=== PATIENT | female | born 1995 | race Two or more races ===

== ENCOUNTER 2020-07-30 09:07 | Outpatient (CLI) | payer OTHER, SELFPAY ==
--- NOTE | ~2020-07-30 | US_ITS ---
EXAMINATION: US OB /maternal detail DATE: 07/30/2020 10:13 INDICATION: Second trimester anatomic survey TECHNIQUE: Real-time ultrasound of the pelvis was performed. COMPARISON: None. FINDINGS: There is a single living fetus in breech presentation. The placenta is posterior. heart rate is 143 beats per minute (bpm). cardiac activity and movement are noted. The amniotic fluid index is subjectively normal. The following anatomy was identified as normal: 4 chamber heart 3 vessel cord cord insertion kidneys urinary bladder stomach spine diaphragm ventricles cisterna magna cerebellum The following biometric data were obtained: Biparietal diameter (BPD): 4.2 cm; head circumference (HC): 15.8 cm; abdominal circumference (AC): 13 .0 cm; femur length (FL): 2.7 cm. These measurements are concordant. Estimated weight is 246 g +/- 36 g, which correlates with the 79th percentile when 12/31/2020 is used as estimated date of delivery. As single measurements, these parameters are each equal to the following estimated gestational ages w ith ranges of +/- 2 standard deviations: BPD: 18 weeks 6 days ( 17 weeks 1 days - 20 weeks 4 days). HC: 18 weeks 5 days ( 17 weeks 1 days - 20 weeks 1 days). AC: 18 weeks 4 days ( 16 weeks 4 days - 20 weeks 5 days). FL: 18 weeks 3 days ( 16 weeks 4 days - 20 weeks 2 days). estimated gestational age based solely on measurements from this exam is 18 weeks 5 days +/- 1 weeks 2 days. IMPRESSION: 1. Single living fetus in breech presentation. 2. Estimated weight is 246 g +/- 36 g, which correlates with the 79th percentile when 12/31/2020 is used as estimated date of delivery. Reviewed, dictated and finalized at location A. IMPRESSION: 1. Single living fetus in breech presentation. 2. Estimated weight is 246 g +/- 36 g, which correlates with the 79th per centile when 12/31/2020 is used as estimated date of delivery.
== END 2020-07-30 09:08 | disposition home or self-care (01) ==
LOC: ANHIMG 09:16
PROVIDERS: Visit Provider Obstetrics & Gynecology Gynecology
DX: Z36.9 Encounter for antenatal screening, unspecified (principal); Z3A.18 18 weeks gestation of pregnancy
CPT/HCPCS: 76805

== ENCOUNTER 2020-11-12 14:24 | Outpatient (RCR) | payer OTHER, SELFPAY ==
[2020-11-12 15:47] VITALS: BP 116/66
== END 2021-01-03 07:41 | disposition home or self-care (01) ==
LOC: ANHOBOP 14:24
PROVIDERS: Visit Provider Obstetrics & Gynecology Gynecology
DX: O36.8130 Decreased fetal movements, third trimester, not applicable or unspecified (principal); Z3A.33 33 weeks gestation of pregnancy
CPT/HCPCS: 59025

== ENCOUNTER 2020-11-16 11:03 | Outpatient (CLI) | payer OTHER, SELFPAY ==
--- NOTE | ~2020-11-16 | US_ITS ---
EXAMINATION: US venous doppler LE RT DATE: 11/16/2020 11:40 INDICATION: Right lower limb pain and swelling TECHNIQUE: Holt scale images without and with compression and Doppler images of the right lower extre mity veins were obtained. COMPARISON: None FINDINGS: The right common femoral vein, profunda femoral vein, femoral vein, popliteal vein, peronea l trunk, posterior tibial veins, and greater saphenous vein are patent. IMPRESSION: 1. Patent right lower extremity veins. No evidence of deep venous thrombosis. Reviewed, dictated and finalized at location A. OR CONTROLS ENGINEER
== END 2020-11-16 11:04 | disposition home or self-care (01) ==
PROVIDERS: Visit Provider Obstetrics & Gynecology Gynecology
DX: M79.89 Other specified soft tissue disorders (principal)
CPT/HCPCS: 93971

== ENCOUNTER 2020-11-27 21:26 | Observation (INO) | payer OTHER, SELFPAY ==
[2020-11-27 21:37] VITALS: BP 116/70; PULSE 79
[2020-11-27 21:46] VITALS: BP 109/71; PULSE 77
[2020-11-27 22:01] VITALS: BP 110/66; PULSE 77
[2020-11-27 22:16] VITALS: BP 109/65; PULSE 77
[2020-11-27 22:29] VITALS: BMI 28.5
--- NOTE | 2020-11-27 22:29 | LDADM ---
This patient, Krista Jade, was admitted to OB Post 116 on 11/27/20 at 21:26. Plans for labor, pain management and were discussed with patient. Patient/family oriented to hospital policies and general routines including ID bracelet, bed and alarms, visiting hours, pain management, procedures, bathroom and other care routines, personal items, smoking policy, room service/diet and guest tray routines, security routines, and visiting hours. Patient/Family are encouraged to report perceived risks to care and to ask questions if they do not understand what they are told or what they should do. See OBIX for further documentation.
--- NOTE | 2020-12-06 08:21 | PM.OBTRLD ---
OB - Triage/Final Diagnosis Visit Information Reason for evaluation: other (edema of lower extremities)
== END 2020-11-27 22:50 | disposition home or self-care (01) ==
PROVIDERS: Admitting Provider Obstetrics & Gynecology Gynecology; Visit Provider Obstetrics & Gynecology Gynecology
DX: O26.899 Other specified pregnancy related conditions, unspecified trimester (principal); R60.0 Localized edema; Z3A.00 Weeks of gestation of pregnancy not specified
CPT/HCPCS: G0378; G0379

== ENCOUNTER 2020-12-31 13:40 | Inpatient (IN) | payer OTHER, SELFPAY ==
[2020-12-31] VITALS (43 sets, daily range): BP systolic 79–152; BP diastolic 41–87; PULSE 66–93; RESP 18; TEMP 36.3–37.1; O2SAT 98–100; BMI 30.8
--- NOTE | 2020-12-31 13:40 | LDADM ---
This patient, Yahir Jade, was admitted to Labor/Delivery/Recovery 105 on 12/31/20 at 13:40. Plans for labor, pain management and were discussed with patient. Patient/family oriented to hospital policies and general routines including ID bracelet, bed and alarms, visiting hours, pain management, procedures, bathroom and other care routines, personal items, smoking policy, room service/diet and guest tray routines, infant security routines, and visiting hours. Patient/Family are encouraged to report perceived risks to care and to ask questions if they do not understand what they are told or what they should do. See OBIX for further documentation.
[2020-12-31 16:21] LABS: Basophils Absolute Auto 0.1 K/mm3 (0.0-0.1); Basophils Percent Auto 0.4 % (0.2-1.2); Eosinophils Absolute Auto 0.2 K/mm3 (0-0.3); Eosinophils Percent Auto 1.1 % (0-4.4); Hematocrit 38.8 % (37.0-47.0); Hemoglobin 13.1 g/dL (12.0-15.0); Immature Granulocyte Percent A 1.6 % (0-0.5); Lymphocytes Absolute Auto 3.03 K/mm3 (0.9-3.2); Lymphocytes Percent Auto 16.2 % (18.3-44.2); Mean Corpuscular HGB Conc 33.8 g/dl (32-36); Mean Corpuscular Hemoglobin 30.2 pg (26-34); Mean Corpuscular Volume 89.4 fl (80-100); Mean Platelet Volume 11.1 fl (7.4-10.4); Monocytes Absolute Auto 1.1 K/mm3 (0.1-0.6); Monocytes Percent Auto 5.6 % (2.6-8.5); Neutrophils Absolute Auto 14.1 K/mm3 (1.3-6.7); Neutrophils Percent Auto 75.1 % (45.5-73.1); Platelet Count Result 308 k/mm3 (150-375); Red Blood Count 4.34 M/mm3 (4.2-5.4); Red Cell Distribution Width 14.3 % (11.5-14.5); White Blood Count 18.7 K/mm3 (4.5-10.0)
--- NOTE | 2020-12-31 16:48 | WPDOBADMIT ---
Obstetrics - Admit Note Admission Note: AROM clear fluid IOL vertex. record reviewed. No pertinent additions to the history and/or any subsequent changes in the physical findings that are not consistent with the expected course of the were found. Additions to the history and/or subsequent changes in the physical findings follow. None.
[2020-12-31] MEDS: OXYTOCIN 30 UNITS/NS 500 ML 30 UNITS/500 ML BAG IV CONT (18:20)
[2020-12-31] MEDS: LACTATED RINGERS 1,000 ML 125 ML IV CONT ×3 (18:20→21:22)
[2020-12-31] MEDS: fentaNYL CITRATE INJ (*CRX) 100 MCG/2 ML VIAL IV PUSH (19:40)
--- NOTE | 2020-12-31 20:04 | WPDANESEPPF ---
Anes - Initial Pre Proc Eval Procedure: labor epidural Date/Time: 12/31/20 20:04 Surgeon: Adelia Espinoza MD Pre Op Diagnosis: labor pain Pre Op Diagnosis: Induction of Labor Patient Data Age: 25 Gender: F Height: 1.6 m Weight: 79 kg Last Vital Signs Temp 36.3 C L 12/31/20 17:30 Pulse 87 12/31/20 20:01 Resp 18 12/31/20 17:30 BP 112/87 12/31/20 20:01 Allergies Allergy/AdvReac Type Severity Reaction Status Date / Time No Known Allergies Allergy Verified 12/01/20 11:18 Home Medications Medication Instructions Recorded Confirmed Type PNV no.[id number] 2 tablet PO DAILY 12/01/20 12/01/20 History [ Gummies] aspirin 81 mg PO DAILY 12/01/20 12/01/20 History docusate sodium [Colace] 100 mg PO DAILY 12/01/20 12/01/20 History ferrous sulfate [Iron (ferrous 325 mg PO DAILY 12/01/20 12/01/20 History sulfate)] Laboratory Tests 12/31/20 12/31/20 12/31/20 16:13 16:13 16:13 WBC 18.7 K/mm3 H K/mm3 (4.5-10.0) RBC 4.34 M/mm3 M/mm3 (4.2-5.4) Hgb 13.1 g/dL g/dL (12.0-15.0) Hct 38.8 % % (37.0-47.0) MCV 89.4 fl fl (80-100) MCH 30.2 pg pg (26-34) MCHC 33.8 g/dl g/dl (32-36) RDW 14.3 % % (11.5-14.5) Plt Count 308 k/mm3 k/mm3 (150-375) MPV 11.1 fl H fl (7.4-10.4) Immature Gran % (Auto) 1.6 % H % (0-0.5) Neut % (Auto) 75.1 % H % (45.5-73.1) Lymph % (Auto) 16.2 % L % (18.3-44.2) Phillips % (Auto) 5.6 % % (2.6-8.5) Eos % (Auto) 1.1 % % (0-4.4) Baso % (Auto) 0.4 % % (0.2-1.2) Lymph # (Auto) 3.03 K/mm3 K/mm3 (0.9-3.2) Phillips # (Auto) 1.1 K/mm3 H K/mm3 (0.1-0.6) Eos # (Auto) 0.2 K/mm3 K/mm3 (0-0.3) Baso # (Auto) 0.1 K/mm3 K/mm3 (0.0-0.1) Abs Immat Gran (auto) 0.30 K/mm3 H K/mm3 (0.00-0.031) Absolute Neuts (auto) 14.1 K/mm3 H K/mm3 (1.3-6.7) Absolute Nucleated RBC 0.0 K/mm3 K/mm3 (0.0-0.012) Nucleated RBC % 0.0 % % (0.0-0.2) RPR Pending Blood Type A Positive Antibody Screen Negative Patient hx anesthesia problems: none Family hx anesthesia problems: none [facility] Family History Family History (Updated 12/01/20 @ 11:20 by Shandra Donovan RN) Other No pertinent family history Social History Social History Smoking status: Never smoker Substance use: never Gender identity (if verbalized by the patient): Female Spiritual care concerns: No Anes - Eval Final PreProcedure Day of Procedure 12/31/20 20:04 Patient weight: obese ASA classification: II Anesthesia type and monitoring: regional epidural Informed Consent: The patient's anesthetic plan and its attendant risks and benefits were discussed with the patient/family/POA. Questions were solicited and answers provided to the satisfaction of the patient/family/POA.
[2021-01-01] VITALS (33 sets, daily range): BP systolic 84–128; BP diastolic 46–102; PULSE 58–128; RESP 18; TEMP 36.9–38.2; O2SAT 95–99
[2021-01-01] MEDS: AMPICILLIN 2 GM/NS 100 ML 2 GM/100 ML BAG IVPB (03:06)
[2021-01-01] MEDS: miSOPROStol 200 MCG TABLET 1000 MCG RECTAL (05:01)
--- NOTE | 2021-01-01 05:29 | P.PCNOB_ITS ---
OB - Delivery Note Procedure Delivery date: 01/01/21 Procedure: events: Labor Induction Intrapartal events: None Induction method: AROM and per pitocin protocol Delivery monitor: external FHT and external uterine Route of delivery: Laceration Description: Perineal - 2nd Degree Specimen: No Anesthesia type: Epidural Disposition: floor [place] Baby Date of : 01/01/21 Time of : 05:01 Weeks of gestation at delivery: 39 Infant gender: Male Weight (pounds): 6 Weight (ounces): 8 presentation: vertex position: Left Occiput Anterior Placenta delivery description: Spontaneous cord vessel description: 3 Vessels and Clamped/Cut score one minute: 8 score five minutes: 9
[2021-01-01] MEDS: OXYTOCIN 30 UNITS/NS 500 ML 30 UNITS/500 ML BAG 125 UNITS IV CONT (05:34)
[2021-01-01] MEDS: BENZOCAINE 20% AER SPR (*SP) 56 GM CAN 1 SPRAY TOPICAL (08:02)
[2021-01-01] MEDS: WITCH HAZEL 40 PADS 1 PAD TOPICAL (08:02)
[2021-01-01] MEDS: IBUPROFEN 600 MG TABLET PO ×2 (08:02→20:13)
--- NOTE | 2021-01-01 10:50 | PC.NURSE ---
Patient transferred to post room #276 via wheelchair. Support person present. Oriented to unit, room, information board, rooming in, admission packet and security measures. Patient verbalizes understanding.
[2021-01-01] MEDS: MULTIVIT/MIN/PREN/FOL AC/IRON TABLET 1 TAB PO (11:16)
[2021-01-01] MEDS: DOCUSATE SODIUM 100 MG CAPSULE PO (19:04)
[2021-01-02 04:52] VITALS: TEMP 36.6
[2021-01-02 05:05] LABS: Hematocrit 30.4 % (37.0-47.0); Hemoglobin 10.4 g/dL (12.0-15.0)
[2021-01-02 07:00] VITALS: BP 122/80; PULSE 81; RESP 16; TEMP 36.7; O2SAT 96
[2021-01-02] MEDS: IBUPROFEN 600 MG TABLET PO ×2 (09:05→19:21)
[2021-01-02] MEDS: DOCUSATE SODIUM 100 MG CAPSULE PO (09:05)
[2021-01-02] MEDS: MULTIVIT/MIN/PREN/FOL AC/IRON TABLET 1 TAB PO (09:05)
--- NOTE | 2021-01-02 18:22 | PC.NURSE ---
Patient viewed the discharge video Mother & Baby Care, The First Two Weeks . Patient was given the opportunity and encouraged to ask questions. Patient verbalized understanding of information shared and has been given the mother/baby guide for home reference.
[2021-01-02 19:05] VITALS: BP 109/69; PULSE 89; RESP 16; TEMP 36.9; O2SAT 100
--- NOTE | 2021-01-03 01:02 | PM.OBPNVD ---
OB - PN: Subj Subjective Date/time seen: 01/03/21 01:02 doing well no complaints OB - PN: Obj Data Labs CBC & Chem 7: 01/02/21 04:43 Labs: Laboratory Results - last 24 hr 01/02/21 04:43 Hgb 10.4 L Hct 30.4 L OB - PN A/P Assessment and Plan (1) (normal spontaneous vaginal delivery): Code(s): O80 - Encounter for full-term uncomplicated delivery Status: Acute Assessment and Plan: continue with pp care. Time Spent With Patient Time: Total time spent is greater than 50% in coordination of care (as documented) at patient's floor/unit and/or counseling patient: Exam GI: Other: ff below umbilicus
[2021-01-03 07:53] VITALS: BP 124/83; PULSE 80; RESP 16; TEMP 36.8; O2SAT 95
[2021-01-03] MEDS: MULTIVIT/MIN/PREN/FOL AC/IRON TABLET 1 TAB PO (07:54)
[2021-01-03] MEDS: DOCUSATE SODIUM 100 MG CAPSULE PO (07:54)
--- NOTE | 2021-01-03 08:39 | PC.NURSE ---
Consulted with patient, mom pumping and feeding at this time. Reviewed instructions given on breast pump care and usage, pumping schedule, nipple care, and collection and storage of breast milk. Encouraged [id number], breast massage and manual expression to stimulate supply. Patient verbalizes and demonstrates understanding of instructions. She denies any nipple discomfort, is bottle feeding as required and waking to feed if needed. Reviewed transition to breast milk, signs of adequate intake, and engorgement/relief. Instructed to call ICP if intake/output less than required. Reviewed community resources on the [facility] website and in the Mom/Baby guide. Information on outpatient services provided. Mother has no further questions at this time.
--- NOTE | 2021-01-03 08:45 | PC.NURSE ---
Mom encouraged to call out next pumping session to have pumping assessed for correct flange size and placement.
--- NOTE | 2021-01-03 08:56 | P.PNOB_ITS ---
OB - PN: Subj Subjective Date/time seen: 01/03/21 08:56 Patient comments: no complaints and pain well controlled baby status: doing well OB - PN: Obj Data Labs CBC & Chem 7: 01/02/21 04:43 OB - PN A/P Plan day: 2 Plan: routine care, discharge home and follow up 6 weeks Comments: declines control Time Spent With Patient Time: Total time spent is greater than 50% in coordination of care (as docum ented) at patient's floor/unit and/or counseling patient: Exam : Bimanual exam- vagina & uterus: other (Uterus firm, nt @U)
[2021-01-03] MEDS: IBUPROFEN 600 MG TABLET PO (09:05)
[2021-01-03 09:11] LABS: Rapid Plasma Reagin Non-Reactive (NonReactive)
--- NOTE | 2021-01-03 10:44 | PC.NURSE ---
Assessed patient for correct flange size, placement and draw while pumping. Patient verbalizes and demonstrates understanding of instructions.
[2021-01-03 11:20] VITALS: BP 137/81; PULSE 70; RESP 20; TEMP 36.2; O2SAT 100
[2021-01-05 09:41] VITALS: BP 114/77; PULSE 100; RESP 20; TEMP 36.8; O2SAT 100
--- NOTE | 2021-01-05 15:08 | PC.NURSE ---
1015 Breast feeding note; LC asked to come and assist this mom and baby seen in f/u today, to try to get to latch to breast feed. Mother is attempting breast feeding, pumping and bottle feeding. Baby had only latched about 3 times in last 24 hours. Baby awake, very hungry and fussy; mother states her milk is in and she is leaking colostrum. Nurse assisted mother in cross cradle then football position. baby made attempts to latch, but was unable to latch to breast to feed; mothers areola area somewhat firm and baby just could not get a latch and maintain. Mother states she had a nipple shield, but threw it away . Mother also states she would really just like to get infant to breast. Attempts stopped, and baby eagerly took pumped breast milk and formula at this feeding. Mother instructed to continue regular pumping, giving infant pumped breast milk first, then completing the feeding with formula as baby wants. Suggestion made to attempt to get her to breast one time a day, when mother feels good, and when baby is awake and eager, but not crying hard. Encouraged to stay determined, that baby may latch as she grows and matures. Mother has the LC contact information at home in her Mom Baby Guide, as well as breast feeding education included in that book. She was encouraged to call for any further questions or concerns. Mother voiced understanding of all information shared. Initialized on 01/05/21 14:59 - END OF NOTE
--- NOTE | 2021-01-17 11:06 | PM.OBDSVD ---
DS: Admitting Diagnosis Admitting Diagnosis Admitting Diagnosis: induction of labor DS: Discharge Diagnosis Discharge Diagnosis (1) (normal spontaneous vaginal delivery): Code(s): O80 - Encounter for full-term uncomplicated delivery Status: Acute OB - DS: Summary OB Procedures : Ultrasound OB Procedures Intrapartum: Spontaneous Vag Delivery OB Procedures: : None Time Spent with Patient Time attestation: Total time spent providing and/or coordinating discharge services: Discharge Plan Discharge Attending physician on discharge: Nima Rojas Consulting providers: Сергей Mullins Discharging Clinician: Adelia Espinoza Anticipated Discharge Date/Time: 01/03/21 08:57 Patient Disposition: Home, Self-Care Activity: may shower and pelvic rest Diet: regular Discharge Instructions: Education: Mom and Baby Guide Given to: Mother Follow-Up: Call your delivering provider's office for an appointment to be seen in: 6 Weeks Mom and baby should come to the [facility] for the follow-up appointment. Appointment Date/Time: Sunday01/05/2021 at 10:00 am Call [phone] if you are unable to keep your appointment time. BREAST CARE: * Wear a snug supportive bra. * For engorgement discomfort: Breast Feeding: * Apply warm moist washcloths * Express milk as needed to relieve engorgement * Wear loose clothing Bottle Feeding: * May apply ice packs * For sore nipples: * Identify correct latch-on * Apply warm moist washcloths before and after nursing * Air dry nipples after nursing * May apply Lansinoh cream to nipples PERINEAL CARE: * Until bleeding stops, use your alyce bottle after urinating * Change your pad frequently throughout the day * You may take sitz baths several times a day (fill your bathtub with warm water and soak for 20 minutes.) Do NOT bathe in the water * No tub baths until seen by your physician - You may shower ACTIVITY: * Rest as much as possible. * Do not exercise or lift anything heavier than your baby (such as laundry or other children.) * Avoid stairs or driving as much as possible. * Do not put anything into the vagina. No douching, tampons, or sexual activity until seen by physician. NOTIFY PHYSICIAN IF YOU HAVE ANY QUESTIONS OR IF ANY OF THE FOLLOWING SYMPTOMS OCCUR: * If your episiotomy or incision becomes red, swollen, or more painful than what you have experienced in the hospital. * If your vaginal bleeding becomes foul smelling. * If your vaginal bleeding becomes more heavy than a period or if your bleeding changes from pink to bright red. However, you may pass an occasional walnut-sized clot once or twice for the first week . * If you experience a sharp, shooting pain in you calves. * If you discover a hard, reddened area on your breast or if you experience flu-like symptoms. DIET: * Eat regular, well-balanced meals. * Drink plenty of fluids daily. If , drink to thirst. Patient Instructions: Antibiotic Form Patient Language: Swiss Follow-up/Referrals: Adelia Espinoza MD [Physician] - 6 Weeks Discharge Medications: Continued Gummies 400 mcg-35 mg- 25 mg-5 mg Tablet,Chewable 2 tablet PO DAILY RF: 0 Discontinued ferrous sulfate [Iron (ferrous sulfate)] 325 mg (65 mg iron) Tablet 325 mg PO DAILY RF: 0 docusate sodium [Colace] 100 mg Capsule 100 mg PO DAILY RF: 0 aspirin 81 mg Tablet 81 mg PO DAILY RF: 0 Date of admission: 12/31/20 13:40 Primary Care Provider: PHYSICIAN,VIBRATOR OPERATOR Admitting Provider: Nima Rojas Attending physician on admission: Adelia Espinoza Condition: Stable
== END 2021-01-03 17:45 | disposition home or self-care (01) | DRG 560 ==
LOC: ANHLDR 15:37 → ANHOB2 01-01 08:39
PROVIDERS: Admitting Provider Obstetrics & Gynecology; Visit Provider Obstetrics & Gynecology Gynecology
DX: O99.214 Obesity complicating childbirth (principal); Z37.0 Single live birth; Z3A.40 40 weeks gestation of pregnancy; O70.1 Second degree perineal laceration during delivery; E66.9 Obesity, unspecified; O75.2 Pyrexia during labor, not elsewhere classified
CPT/HCPCS: 36415; 85014; 85018; 85025; 86592; 86850; 86900; 86901; A9270; J0131; J0290; J2210; J2590; J2795; J3010; J7120

== ENCOUNTER 2021-12-09 15:28 | Emergency (ER) | payer OTHER, SELFPAY ==
[2021-12-09 15:36] VITALS: BP 116/68; PULSE 94; RESP 16; TEMP 36.3; O2SAT 100
--- NOTE | 2021-12-09 15:56 | ED.URI ---
HPI - URI/Sore Throat General Chief Complaint: Upper Respiratory Infection Stated Complaint: Sore Throat Source: patient and RN notes reviewed Mode of arrival: ambulatory Limitations: no limitations History of Present Illness HPI Narrative: 26-year-old female presents concern for 3 to 4-day history of sore throat, body aches, cough. Reports she took 2 doses of azithromycin that she had leftover without relief. She denies shortness of breath, fever. MD elicited complaint: cough and sore throat Related Data Home Medications Medication Instructions Recorded Confirmed Gummies 2 tablet PO DAILY 12/01/20 12/01/20 Allergies Allergy/AdvReac Type Severity Reaction Status Date / Time No Known Allergies Allergy Verified 12/01/20 11:18 Review of Systems Review of Systems: CONSTITUTIONAL: Denies malaise, chills, sweats, or fever. EYES: Denies visual changes, redness, or discharge. ENT: Reports rhinorrhea, congestion, sore throat. Denies sinus pain, otalgia CARDIOVASCULAR: Denies chest pain, palpitations, or edema. RESPIRATORY: Reports cough. Denies dyspnea. GASTROINTESTINAL: Denies abdominal pain, nausea, vomiting, diarrhea SKIN: Denies rash or itching. MUSCULOSKELETAL: Denies myalgia. NEUROLOGIC: Denies headache. All systems reviewed & are unremarkable except as noted in HPI and below PMFSH Past Medical History Medical History (Updated 12/09/21 @ 16:40 by Brianne Torres NP) (normal spontaneous vaginal delivery) Family History Family History (Updated 12/01/20 @ 11:20 by Shandra Donovan RN) Other No pertinent family history Social History Social History Smoking status: Never smoker Substance use: never Gender identity (if verbalized by the patient): Female Spiritual care concerns: No Comments At time of signature, agree with nursing past medical, surgical, social and family history. There is no relevant family history pertinent to the presenting complaint Exam Narrative: GENERAL: Well-appearing, well-nourished, and in no acute distress. HEAD: Normocephalic EYES: PERRLA, conjunctivae clear ENT: Nares clear clear discharge. Mucous membranes moist. TM pearly short with dull light reflex bilaterally; no tragal tenderness. Oropharynx not erythematous without lesions. Tonsils not enlarged and without exudate, no drooling, no hoarseness, no trismus, uvula midline. NECK: Supple. No lymphadenopathy CHEST: Clear to auscultation, breath sounds equal. No wheezing, rhonchi, rales, or stridor. No respiratory distress, speaks in full sentences. HEART: Regular rate and rhythm. No murmur heard. SKIN: Warm, dry, no rash. NEURO: Alert and oriented x3. PSYCH: Normal mood and affect Course Course Emergency Course: Patient is aware of diagnosis, understands and agrees to treatment plan. Anticipatory guidance given. Patient agrees to follow-up as directed and is aware of reasons to seek care at the emergency department. Portions of this record may have been created with voice recognition software Level of Care: Express Care Visit Vital Signs Vital signs: Vital Signs Temperature 97.4 F L 12/09/21 15:36 Pulse Rate 94 12/09/21 15:36 Respiratory Rate 16 12/09/21 15:36 Blood Pressure 116/68 12/09/21 15:36 Pulse Oximetry 100 12/09/21 15:36 Temperature 97.4 F L 12/09/21 15:36 Pulse Rate 94 12/09/21 15:36 Respiratory Rate 16 12/09/21 15:36 Blood Pressure 116/68 12/09/21 15:36 Pulse Oximetry 100 12/09/21 15:36 Reviewed. MDM - URI/Sore Throat MDM Narrative Medical decision making narrative: Differential diagnosis considered: Villalobos virus, strep pharyngitis, allergic rhinitis, upper respiratory tract infection, sinusitis, rhinosinusitis, nasopharyngitis. viral pharyngitis, otitis media, otitis externa, pneumonia, bronchitis, viral cough syndrome, viral syndrome, and influenza. Exam findings show no acute concerns or changes; patient is non-toxic appearing and is in no distr
--- NOTE | 2021-12-09 16:42 | PC.NURSE ---
alaina at main lab called and will d/c pcr covid order. was intended to be rapid covid test.
== END 2021-12-09 16:45 | disposition home or self-care (01) ==
PROVIDERS: Emergency Provider Nurse Practitioner
DX: U07.1 COVID-19 (principal)
CPT/HCPCS: 87426; 99213; C9803; G0463; U0003; U0005

== ENCOUNTER 2023-10-28 11:17 | Emergency (ER) | payer OTHER, SELFPAY ==
[2023-10-28 11:45] VITALS: BP 104/57; PULSE 90; RESP 16; TEMP 36.6; O2SAT 100
--- NOTE | 2023-10-28 12:36 | ED.URI ---
HPI - URI/Sore Throat General Chief Complaint: Upper Respiratory Infection Stated Complaint: headache,sore throat,cough,dizzy,weakness Time Seen by Provider: 10/28/23 12:36 Source: patient Mode of arrival: ambulatory Limitations: no limitations History of Present Illness HPI Narrative: 27-year-old female presents with complaint of nasal congestion, cough for the past 4 days. Afebrile. No chest pain or shortness of breath. Patient reports symptoms are improving. Reports exposure to RSV from family on . Reports that daughter has similar symptoms, her RSV test was positive. All systems reviewed and negative except as noted above. Related Data Home Medications Medication Instructions Recorded Confirmed No Home Medications 10/28/23 10/28/23 Allergies Allergy/AdvReac Type Severity Reaction Status Date / Time No Known Allergies Allergy Verified 10/28/23 11:50 Review of Systems Review of Systems: CONSTITUTIONAL: Denies fever, chills, or sweats. EYES: Denies visual changes, redness, or discharge. ENT: Reports rhinorrhea, congestion. Denies sore throat, or otalgia. CARDIOVASCULAR: Denies chest pain, palpitations, or edema. RESPIRATORY: reports cough. Denies dyspnea. GASTROINTESTINAL: Denies abdominal pain, nausea, vomiting, or diarrhea. GENITOURINARY: Denies dysuria or hematuria. SKIN: Denies rash or itching. MUSCULOSKELETAL: Denies back pain, joint pain, or myalgia. NEUROLOGIC: Denies headache, numbness, or weakness. PSYCHIATRIC: Denies anxiety or depression. All other systems reviewed are negative, except as documented in HPI. [facility] Past Medical History Medical History (Updated 10/28/23 @ 12:55 by Linda Fischer NP) (normal spontaneous vaginal delivery) Family History Family History (Updated 12/01/20 @ 11:20 by Shandra Donovan RN) Other No pertinent family history Social History Social History Smoking status: Never smoker Substance use: never Gender identity (if verbalized by the patient): Female Spiritual care concerns: No Comments At time of signature, agree with nursing past medical, surgical, social and family history. There is no relevant family history pertinent to the presenting complaint. Exam Narrative: GENERAL: This is a well-nourished, well-developed patient, in no apparent distress. HEAD: normocephalic, atraumatic. EYES: PERRL. Sclera clear/white. Vision is grossly intact. EARS: External ears normal, auditory canals clear and without drainage, TMs normal without perforation. Hearing grossly intact. NOSE: External nose normal with clear nasal drainage, nares without redness, THROAT: Mucous membranes moist, posterior pharynx clear. NECK: Neck supple, non-tender without lymphadenopathy, masses or thyromegaly. CARDIOVASCULAR: Regular rate and rhythm without murmurs, gallops, or rubs. RESPIRATORY: Clear to auscultation. Breath sounds equal bilaterally. No wheezes, rales, or rhonchi. SKIN: warm, Dry, intact with no suspicious lesions or rash, good texture and turgor. NEURO: awake, alert, and oriented to person, place and time. There were no obvious focal neurologic abnormalities. EXTREMITIES: No joint tenderness, effusion, or edema noted. Course Course Level of Care: Express Care Visit Vital Signs Vital signs: Vital Signs Temperature 36.6 C 10/28/23 11:45 Pulse Rate 90 10/28/23 11:45 Respiratory Rate 16 10/28/23 11:45 Blood Pressure 104/57 L 10/28/23 11:45 Pulse Oximetry 100 10/28/23 11:45 Oxygen Delivery Room Air 10/28/23 11:45 Temperature 36.6 C 10/28/23 11:45 Pulse Rate 90 10/28/23 11:45 Respiratory Rate 16 10/28/23 11:45 Blood Pressure 104/57 L 10/28/23 11:45 Pulse Oximetry 100 10/28/23 11:45 Oxygen Delivery Room Air 10/28/23 11:45 reviewed MDM - URI/Sore Throat MDM Narrative Medical decision making narrative: patient well-appearing. Symptoms improving. lungs damien
== END 2023-10-28 13:25 | disposition home or self-care (01) ==
PROVIDERS: Emergency Provider Nurse Practitioner Family
DX: R05.9 Cough, unspecified (principal); B97.4 Respiratory syncytial virus as the cause of diseases classified elsewhere
CPT/HCPCS: 99211; G0463

== ENCOUNTER 2023-12-20 10:58 | Outpatient (CLI) | payer OTHER, SELFPAY ==
--- NOTE | ~2023-12-20 | US_ITS ---
EXAMINATION: US OB <=14 wk fetus w TV DATE: 12/20/2023 12:14 INDICATION: Vaginal spotting. TECHNIQUE: Real-time transabdominal and transvaginal obstetric ultrasound. FINDINGS: No prior studies for comparison. The uterus measures 7 x 4.5 x 4.7 cm. There is an intrauterine gestational sac with a yolk sac. No fe dave pole identified. There is a 2.3 cm corpus luteal cyst of the right ovary. Left ovary is not visua lized. No free fluid in the pelvis. IMPRESSION: 1: Intrauterine gestational sac with yolk sac. No pole identified. Considerations include very early intrauterine , ectopic and failed . Recommend follow-up with serial quantitative beta-hCG levels and ultrasound as clinically indicated. Reviewed, dictated and finalized at location L. TION MANAGER IMPRESSION: 1: Intrauterine gestational sac with yolk sac. No pole identified. Consid erations include very early intrauterine , ectopic and faile d . Recommend follow-up with serial quantitative beta-hCG levels and u ltrasound as clinically indicated.
== END 2023-12-20 10:59 | disposition home or self-care (01) ==
LOC: ANHIMG 11:00
PROVIDERS: Visit Provider Obstetrics & Gynecology Gynecology
DX: O26.851 Spotting complicating pregnancy, first trimester (principal); Z3A.00 Weeks of gestation of pregnancy not specified
CPT/HCPCS: 76801; 76817

== ENCOUNTER 2024-01-04 10:53 | Outpatient (CLI) | payer OTHER, SELFPAY ==
--- NOTE | ~2024-01-04 | US_ITS ---
EXAMINATION: US OB <= 14 weeks fetus DATE: 01/04/2024 11:45 INDICATION: First trimester viability assessment TECHNIQUE: Real-time pelvic transabdominal ultrasound was performed. COMPARISON: 12/20/2023 FINDINGS: The uterus measures 11.5 x 3.8 x 5.4 cm. There is an intrauterine gestational sac. A yolk s ac is identified. heart motion is identified measuring 157 beats per minute (bpm) by M-mode Dop pler. The crown rump length measures 1.5 cm, which correlates with an estimated gestational age of 7 weeks and 6 day(s) (+/-) 5 day(s). The ovaries are unremarkable in appearance. There is no free fluid in the pelvis. IMPRESSION: 1. Live intrauterine with an estimated gestational age of 7 weeks and 6 day(s) (+/-) 5 day( s) and an estimated delivery date of 08/16/2024. Reviewed, dictated and finalized at location B. IVING ASSOCIATE STORE IMPRESSION: 1. Live intrauterine with an estimated gestational age of 7 weeks and 6 day(s) (+/-) 5 day(s) and an estimated delivery date of 08/16/2024.
[2024-01-04 12:18] LABS: Basophils Percent Auto 0.3 % (0.2-1.2); Eosinophils Absolute Auto 0.1 K/mm3 (0-0.3); Eosinophils Percent Auto 0.8 % (0-4.4); Hematocrit 37.3 % (37.0-47.0); Immature Granulocyte Absolute 0.04 K/mm3 (0.00-0.031); Immature Granulocyte Percent A 0.3 % (0-0.5); Lymphocytes Percent Auto 25.3 % (18.3-44.2); Mean Corpuscular HGB Conc 32.2 g/dl (32-36); Mean Corpuscular Hemoglobin 27.9 pg (26-34); Mean Corpuscular Volume 86.7 fl (80-100); Mean Platelet Volume 10.2 fl (7.4-10.4); Monocytes Absolute Auto 0.7 K/mm3 (0.1-0.6); Monocytes Percent Auto 5.4 % (2.6-8.5); Neutrophils Absolute Auto 8.3 K/mm3 (1.3-6.7); Neutrophils Percent Auto 67.9 % (45.5-73.1); Platelet Count Result 297 k/mm3 (150-375); Red Cell Distribution Width 13.7 % (11.5-14.5); White Blood Count 12.3 K/mm3 (4.5-10.0)
[2024-01-04 13:04] LABS: Vitamin D 25 Hydroxy 25.7 ng/mL
[2024-01-04 13:11] LABS: HIV 1/2 Ab P24 Ag Result Negative (Negative)
[2024-01-04 13:30] LABS: Hepatitis B Surface Antigen Negative (Negative)
[2024-01-04 13:38] LABS: Ferritin 7.54 ng/mL (6.24-137)
[2024-01-04 13:41] LABS: Hemoglobin A1C 5.4 % (<5.7); Hepatitis C Virus Antibody Negative (Negative)
[2024-01-05 08:15] LABS: Rapid Plasma Reagin Non-Reactive (NonReactive)
== END 2024-01-04 10:54 | disposition home or self-care (01) ==
LOC: ANHIMG 10:53
PROVIDERS: Visit Provider Obstetrics & Gynecology Gynecology
DX: Z36.9 Encounter for antenatal screening, unspecified (principal); Z3A.01 Less than 8 weeks gestation of pregnancy
CPT/HCPCS: 36415; 76801; 82306; 82728; 83036; 85025; 86592; 86703; 86762; 86803; 86850; 86900; 86901; 87340; G0432

== ENCOUNTER 2024-09-04 13:03 | Emergency (ER) | payer OTHER, SELFPAY ==
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
[2024-09-04 13:19] VITALS: BP 100/58; PULSE 76; RESP 15; TEMP 36.5; O2SAT 100
[2024-09-04 13:25] VITALS: BP 100/58; PULSE 76; RESP 15; TEMP 36.5; O2SAT 100
== END 2024-09-04 13:58 | disposition home or self-care (01) ==
PROVIDERS: Emergency Provider Nurse Practitioner
DX: S39.012A Strain of muscle, fascia and tendon of lower back, initial encounter (principal); V49.40XA Driver injured in collision with unspecified motor vehicles in traffic accident, initial encounter
CPT/HCPCS: 72100; 99213; G0463

== ENCOUNTER 2024-10-15 15:08 | Outpatient (CLI) | payer OTHER, SELFPAY ==
--- NOTE | ~2024-10-15 | US_ITS ---
EXAMINATION: US OB <=14 wk fetus w TV DATE: 10/15/2024 16:12 INDICATION: . History of spontaneous . TECHNIQUE: Real-time transabdominal and transvaginal pelvic ultrasound was performed. COMPARISON: Ultrasound 01/04/2024 FINDINGS: TRANSABDOMINAL ULTRASOUND: The uterus measures 9.7 x 5.4 x 5.0 cm. TRANSVAGINAL ULTRASOUND: There is an intrauterine gestational sac. A yolk sac is identified. The fet al crown rump length measures 4 mm, which correlates with an estimated gestational age of 6 weeks and 0 day(s) (+/-) 4 day(s). heart motion is identified measuring 117 beats per minute (bpm) by M- mode Doppler. There is a small subchorionic hematoma. The right ovary measures 2.3 x 1.8 x 1.5 cm. Th e left ovary measures 2.6 x 1.4 x 2.0 cm. There is no free fluid in the pelvis. IMPRESSION: 1. Single living intrauterine gestation with estimated date of delivery of 06/10/2025. 2. Small subchorionic hematoma. Reviewed, dictated and finalized at location A. UTER HARDWARE DESIGNER IMPRESSION: 1. Single living intrauterine gestation with estimated date of delivery of 05/26. 2. Small subchorionic hematoma.
== END 2024-10-15 15:09 | disposition home or self-care (01) ==
PROVIDERS: PCP Obstetrics & Gynecology Gynecology; Visit Provider Obstetrics & Gynecology Gynecology
DX: O09.291 Supervision of pregnancy with other poor reproductive or obstetric history, first trimester (principal); O46.90 Antepartum hemorrhage, unspecified, unspecified trimester; Z3A.00 Weeks of gestation of pregnancy not specified
CPT/HCPCS: 76801; 76817

== ENCOUNTER 2024-11-07 13:16 | Outpatient (CLI) | payer OTHER, SELFPAY ==
--- NOTE | ~2024-11-07 | US_ITS ---
EXAMINATION: US OB <=14 wk fetus w TV DATE: 11/07/2024 14:27 INDICATION: Subchronic hematoma. TECHNIQUE: Real-time transabdominal and transvaginal pelvic ultrasound was performed. COMPARISON: Ultrasound 10/15/2024 FINDINGS: TRANSABDOMINAL ULTRASOUND: The uterus measures 10.7 x 6.1 x 5.3 cm. TRANSVAGINAL ULTRASOUND: There is an intrauterine gestational sac. A yolk sac is identified. The fet al crown rump length measures 2.7 cm, which correlates with an estimated gestational age of 9 weeks a nd 3 day(s). heart motion is identified measuring 158 beats per minute (bpm) by M-mode Doppler. The right ovary measures 2.4 x 1.3 x 2.0 cm. The left ovary measures 2.5 x 1.9 x 1.5 cm. There is no free fluid in the pelvis. IMPRESSION: 1. Single living intrauterine gestation with estimated date of delivery of 06/10/2025 based on the ul trasound from 10/15/2024. 2. No subchronic hematoma. Reviewed, dictated and finalized at location A. IR CAMERAMAN IMPRESSION: 1. Single living intrauterine gestation with estimated date of delivery of 05/26 based on the ultrasound from 10/15/2024. 2. No subchronic hematoma.
== END 2024-11-07 13:17 | disposition home or self-care (01) ==
PROVIDERS: PCP Obstetrics & Gynecology Gynecology; Visit Provider Obstetrics & Gynecology Gynecology
DX: O36.8910 Maternal care for other specified fetal problems, first trimester, not applicable or unspecified (principal); Z3A.00 Weeks of gestation of pregnancy not specified
CPT/HCPCS: 76801; 76817

== ENCOUNTER 2025-01-22 15:20 | Outpatient (CLI) | payer OTHER, SELFPAY | END 2025-01-22 15:21 | disposition home or self-care (01) | PROVIDERS: PCP Obstetrics & Gynecology Gynecology; Visit Provider Nurse Practitioner Women's Health | DX: Z36.9 Encounter for antenatal screening, unspecified (principal) | CPT/HCPCS: 76805 ==

== ENCOUNTER 2025-02-03 14:53 | Outpatient (CLI) | payer OTHER, SELFPAY ==
--- NOTE | ~2025-02-03 | US_ITS ---
EXAM EXAMINATION: US OB follow up DATE: 02/03/2025 16:22 CDT INDICATION: Anatomy scan follow-up COMPARISON: 12/26/2024 and 11/25/2024 TECHNIQUE: Real-time transabdominal obstetric ultrasound. FINDINGS: There is a single intrauterine gestation in vertex presentation. The placenta is posterior The cervix measures 3.7 cm in length on the submitted images. cardiac activity and movement is noted with a heart rate of 151 beats per minute. The following biometric data were obtained: Biparietal diameter (BPD): 5.6 cm; head circumference (HC): 19.7 cm; abdominal circumference (AC): 17.2 cm; femur length (FL): 3.8 cm. These measurements are concordant. Estimated weight is 477 g +/- 71.5 g, which correlates with the 58th percentile when 06/07/2025 is used as estimated date of delivery. As single measurements, these parameters are each equal to the following estimated gestational ages: BPD: 23 weeks 0 days. HC: 21 weeks 6 days. AC: 22 weeks 0 days. FL: 22 weeks 0 days. estimated gestational age based solely on measurements from this exam is 22 weeks 2 days +/- 1 week 4 days. NOMI: The deepest vertical pocket measures 5.2 cm. Lateral ventricle measures 5.8 mm Cerebellum measures 2.2 cm, and is sonographically unremarkable. Cisterna magna measures 4.9 mm (normal measurement is 2 to 10 mm). The nuchal fold measures 2.7 mm (normal measurement is less than 6 mm). IMPRESSION: Single intrauterine gestation in vertex presentation with cardiac activity identified. Follow-up anatomy scan demonstrates unremarkable findings and measurements within the posterior crani al fossa. Reviewed, dictated and finalized at location A. IMPRESSION: Single intrauterine gestation in vertex presentation with cardiac activit y identified. Follow-up anatomy scan demonstrates unremarkable findings and measurements with in the posterior cranial fossa.
== END 2025-02-03 14:54 | disposition home or self-care (01) ==
LOC: ANHIMG 14:54
PROVIDERS: PCP Obstetrics & Gynecology Gynecology; Visit Provider Obstetrics & Gynecology Gynecology
DX: Z36.9 Encounter for antenatal screening, unspecified (principal); Z3A.22 22 weeks gestation of pregnancy
CPT/HCPCS: 76816

== ENCOUNTER 2025-05-31 17:19 | Inpatient (IN) | payer OTHER, SELFPAY ==
[2025-05-31] VITALS (53 sets, daily range): BP systolic 111–153; BP diastolic 64–102; PULSE 66–151; TEMP 36.8–37.1; O2SAT 97–100; BMI 31.0
--- NOTE | 2025-05-31 02:00 | S_PTH ---
PATIENT: Yahir Jade LOC: [facility] U#:[id number] AGE/SX: 29/F ROOM: 288 RE05/31/[address]: Adelia Espinoza MD : 1995 BED: 00 DIS: 06/03/2025 SPEC #: [id number] RECD: 06/01/25 10:18 STATUS: ARYAN REFarhan #: [id number] EMA: 05/31/25 02:[address]: Adelia Espinoza DEPT: [facility] RECD BY: Marcie Hallman ENTERED: 06/01/25 10:18 SP TYPE: Surgical OTHR DR: UNKNOWN,DOCTOR Tissues: A - Placenta Procedures: Hematoxylin and Eosin Stain Gross and Microscopic Level 5
--- NOTE | 2025-05-31 18:19 | LDADM ---
This patient, Yahir Jade, was admitted to Labor/Delivery/Recovery 106 on 05/31/25 at 17:19. Plans for labor, pain management and were discussed with patient. Patient/family oriented to hospital policies and general routines including ID bracelet, bed and alarms, visiting hours, pain management, procedures, bathroom and other care routines, personal items, smoking policy, room service/diet and guest tray routines, infant security routines, and visiting hours. Patient/Family are encouraged to report perceived risks to care and to ask questions if they do not understand what they are told or what they should do. See OBIX for further documentation.
[2025-05-31 19:03] LABS: Hematocrit 40.5 % (37.0-47.0); Hemoglobin 13.5 g/dL (12.0-15.0); Immature Granulocyte Percent A 1.5 % (0-0.5); Lymphocytes Absolute Auto 2.55 K/mm3 (0.9-3.2); Mean Corpuscular HGB Conc 33.3 g/dl (32-36); Mean Corpuscular Hemoglobin 30.1 pg (26-34); Mean Corpuscular Volume 90.2 fl (80-100); Nucleated Red Blood Cells Absolute Auto 0.000 K/mm3 (0.0-0.012); Nucleated Red Blood Cells Perc 0.0 % (0.0-0.2); Platelet Count Result 228 k/mm3 (150-375); Red Blood Count 4.49 M/mm3 (4.2-5.4); White Blood Count 19.6 K/mm3 (4.5-10.0)
[2025-05-31 19:58] LABS: Syphilis IgG/IgM Antibody Non-Reactive (Nonreactive)
[2025-05-31] MEDS: LACTATED RINGERS 1,000 ML 125 ML IV CONT (22:15)
--- NOTE | 2025-05-31 23:37 | WPDANESEPP ---
Anes - Eval Pre Procedure Procedure: labor epidural Date/Time: 05/31/25 23:37 Surgeon: garo Preop Diagnosis: pain during labor Pre Op Diagnosis: Labor Patient Data Age: 29 Gender: F Height: 1.6 m Weight: 79.5 kg Last Vital Signs Pulse 95 05/31/25 23:30 BP 153/84 H 05/31/25 23:30 Pulse Ox 100 05/31/25 23:33 O2 Del Method Room Air 05/31/25 18:19 Allergies Allergy/AdvReac Type Severity Reaction Status Date / Time No Known Allergies Allergy Verified 05/09/25 13:19 Home Medications ?Medication ?Instructions ?Recorded ?Confirmed ?Type [id number] 1 mg tablet PO 05/09/25 History tablet aspirin 81 mg chewable tablet 81 mg PO DAILY 05/31/25 05/31/25 History metronidazole 0.75 % (37.5 mg/5 vaginal 05/31/25 History gram) vaginal gel Laboratory Tests 05/31/25 18:56 WBC 19.6 H K/mm3 (4.5-10.0) RBC 4.49 M/mm3 (4.2-5.4) Hgb 13.5 g/dL (12.0-15.0) Hct 40.5 % (37.0-47.0) MCV 90.2 fl (80-100) MCH 30.1 pg (26-34) MCHC 33.3 g/dl (32-36) RDW 13.2 % (11.5-14.5) Plt Count 228 k/mm3 (150-375) MPV 10.5 H fl (7.4-10.4) Immature Gran % (Auto) 1.5 H % (0-0.5) Neut % (Auto) 78.9 H % (45.5-73.1) Lymph % (Auto) 13.0 L % (18.3-44.2) [place] % (Auto) 5.7 % (2.6-8.5) Eos % (Auto) 0.6 % (0-4.4) Baso % (Auto) 0.3 % (0.2-1.2) Lymph # (Auto) 2.55 K/mm3 (0.9-3.2) [place] # (Auto) 1.1 H K/mm3 (0.1-0.6) Eos # (Auto) 0.1 K/mm3 (0-0.3) Baso # (Auto) 0.1 K/mm3 (0.0-0.1) Abs Immat Gran (auto) 0.29 H K/mm3 (0.00-0.031) Absolute Neuts (auto) 15.5 H K/mm3 (1.3-6.7) Absolute Nucleated RBC 0.000 K/mm3 (0.0-0.012) Nucleated RBC % 0.0 % (0.0-0.2) Syphilis IgG/IgM Ab Non-reactive (Nonreactive) Blood Type A Positive Antibody Screen Negative Patient hx anesthesia problems: none Family hx anesthesia problems: none Results Review: All pre-operative results and documents have been reviewed as part of the pre-operative evaluation. [facility] Past Medical History Medical History (normal spontaneous vaginal delivery) Family History Family History Other No pertinent family history Social History Social History Smoking status: Never smoker Second hand tobacco smoke exposure: No Substance use: never Do You Feel Safe in your Home?: Yes Lack of Transportation: No Lack of Food: Never True Current Housing: I Have Housing Concerned About Future Housing: No Difficulty Paying Gas/Electric Bills: No Difficulty Paying for Meds: No Currently Unemployed: No Education: High School Diploma/GED Difficulty w/ Childcare or Family Care: No Gender identity (if verbalized by the patient): Female Spiritual care concerns: No Exam Day of Procedure 05/31/25 23:37
[2025-06-01] VITALS (62 sets, daily range): BP systolic 82–163; BP diastolic 31–132; PULSE 32–175; RESP 16–20; TEMP 36.4–37.2; O2SAT 78–100
[2025-06-01] MEDS: PHENYLEPHRINE 1,000 MCG/10 ML SYRINGE 100 MCG IV PUSH (00:19)
[2025-06-01] MEDS: OXYTOCIN 30 UNITS/NS 500 ML 30 UNITS/500 ML BAG IV CONT (01:13)
--- NOTE | 2025-06-01 01:49 | PM.OBPRVD ---
OB - Vaginal Delivery Note Procedure Delivery date: 06/01/25 Intrapartal Events: Decelerations (bradycardia post epidural; variables) Induction method: None Delivery augmentation: Pitocin (at end of pushing only) Delivery monitor: External FHT and External Uterine Route of delivery: Episiotomy description: None Laceration Description: Perineal - 1st Degree Delivery repair: vicryl (3-0) Specimen: Yes (placenta) Quantitative Blood Loss (ml): 150 Anesthesia type: Epidural Disposition: Floor Complications: No immediate complications [place] Baby Date of : 06/01/25 Gestational Age by Date: 38 (38 04/01) gender: Female presentation: vertex position: Left Occiput Anterior Placenta delivery description: Spontaneous Cord Vessel Description: 3 Vessels and Clamped/Cut score one minute: 7 score five minutes: 9 Narrative: thick meconium covering infant minimal effort and tone immmediately at delivery
--- NOTE | 2025-06-01 01:51 | WPDOBADMIT ---
Obstetrics - Admit Note Admission Note: record reviewed. No pertinent additions to the history and/or any subsequent changes in the physical findings that are not consistent with the expected course of the were found. Additions to the history and/or subsequent changes in the physical findings follow. Here in labor and subsequent SROM with thick meconium noted.
--- NOTE | 2025-06-01 01:51 | PM.OBDSVD ---
DS: Admitting Diagnosis Discharge Date 06/03/2025 Admitting Diagnosis IUP 38 4/7 labor DS: Discharge Diagnosis Discharge Diagnosis (1) (normal spontaneous vaginal delivery): Code(s): O80 - Encounter for full-term uncomplicated delivery Status: Acute OB - DS: Summary OB Procedures : Ultrasound OB Procedures Intrapartum: Spontaneous Vag Delivery OB Procedures: : None Peripartum Data Delivery Method: Natural Vaginal Laceration Description: Perineal - 1st Degree Episiotomy description: None complications: none Status at Discharge Functional status at discharge: independent ambulation Overall status at discharge: patient is progressing back to baseline Time Spent with Patient Time attestation: Total time spent providing and/or coordinating discharge services: DS: Data Data Completed and Pending Labs on day of discharge: Labs from last 24 hours 05/31/25 18:56 WBC 19.6 H RBC 4.49 Hgb 13.5 Hct 40.5 MCV 90.2 MCH 30.1 MCHC 33.3 RDW 13.2 Plt Count 228 MPV 10.5 H Immature Gran % (Auto) 1.5 H Neut % (Auto) 78.9 H Lymph % (Auto) 13.0 L [place] % (Auto) 5.7 Eos % (Auto) 0.6 Baso % (Auto) 0.3 Lymph # (Auto) 2.55 [place] # (Auto) 1.1 H Eos # (Auto) 0.1 Baso # (Auto) 0.1 Abs Immat Gran (auto) 0.29 H Absolute Neuts (auto) 15.5 H Absolute Nucleated RBC 0.000 Nucleated RBC % 0.0 Syphilis IgG/IgM Ab Non-reactive Blood Type A Positive Antibody Screen Negative Discharge Plan Discharge Attending physician on discharge: Adelia Espinoza Discharging Clinician: Adelia Espinoza Anticipated Discharge Date/Time: 06/03/25 01:52 Patient Disposition: Home Activity: may shower and pelvic rest Diet: regular Patient Instructions: Antibiotic Form Patient Language: Tem[place] Stand Alone Forms: General Discharge Information Follow-up/Referrals: Adelia Espinoza MD [Physician] - 6 Weeks Discharge Medications: Continued ughhjneu-drd-Xd-FA 1 mg tablet PO Discontinued metronidazole 0.75 % (37.5mg/5 gram) gel VAGINAL aspirin 81 mg tablet,chewable 81 mg PO DAILY Date of admission: 05/31/25 17:19 Primary Care Provider: UNKNOWN,DOCTOR Admitting Provider: Adelia Espinoza Attending physician on admission: Adelia Espinoza Condition: Stable
[2025-06-01] MEDS: OXYTOCIN 30 UNITS/NS 500 ML 30 UNITS/500 ML BAG 125 UNITS IV CONT (02:45)
[2025-06-01] MEDS: WITCH HAZEL 40 PADS 1 PAD TOPICAL (04:36)
[2025-06-01] MEDS: BENZOCAINE 20% AER SPR (*SP) 56 GM CAN 1 SPRAY TOPICAL (04:36)
--- NOTE | 2025-06-01 05:51 | OBPPTRN ---
06/01/2025 at 0707 Patient transferred to post room #288 via wheelchair. Support person present. The patient was oriented to unit, room, information board, rooming in, admission packet and security measures. Patient verbalizes understanding. Patient's significant other was attempting, (if not), sleeping on the couch.
[2025-06-01] MEDS: DOCUSATE SODIUM 100 MG CAPSULE PO (08:46)
[2025-06-01] MEDS: MULTIVIT/MIN/PREN/FOL AC/IRON TABLET 1 TAB PO (08:46)
[2025-06-01] MEDS: IBUPROFEN 600 MG TABLET PO ×2 (08:47→20:30)
[2025-06-01] MEDS: FLUCONAZOLE 150 MG TABLET PO (15:21)
[2025-06-02] MEDS: ACETAMINOPHEN 325 MG TABLET 650 MG PO (00:15)
[2025-06-02 05:06] LABS: Hematocrit 35.7 % (37.0-47.0); Hemoglobin 11.8 g/dL (12.0-15.0)
--- NOTE | 2025-06-02 07:51 | P.PNOB_ITS ---
OB - PN: Subj Subjective Date/time seen: 06/02/25 07:51 Patient comments: tolerating diet and other (c/o hemorrhoid pain ) [place] baby status: doing well and nursing well OB - PN: Obj Data Labs 06/02/25 03:47 Labs: Laboratory Results - last 24 hr 06/02/25 03:47 Hgb 11.8 L Hct 35.7 L OB - PN A/P Plan day: 1 Plan: routine care Time Spent With Patient Time: Total time spent is greater than 50% in coordination of care (as documented) at patient's floor/unit and/or counseling patient: Exam 2 : Bimanual exam- vagina & uterus: other (Uterus firm, nt @U)
[2025-06-02 08:00] VITALS: BP 114/74; PULSE 75; RESP 18; TEMP 37.1; O2SAT 99
[2025-06-02] MEDS: IBUPROFEN 600 MG TABLET PO (08:05)
[2025-06-02] MEDS: MULTIVIT/MIN/PREN/FOL AC/IRON TABLET 1 TAB PO (08:05)
[2025-06-02] MEDS: DIBUCAINE 1% OINTMENT 30 GM TUBE 1 APPLIC TOPICAL (08:06)
--- NOTE | 2025-06-02 08:40 | PC.NURSE ---
Patient called out for assistance. Mom has baby swaddled so we unwrapped her and placed her skin to skin in cross cradle hold. Mom does well holding baby and her breast. Mom says this is the most effort baby has given at the breast so far. Baby is off and on with a shallow latch. We tried compressing the breast and switching to a football position. Baby does not give a wide gape and pushes the nipple out of her mouth as she tries to latch. Mom has a nipple shield but has not been using it overnight. If baby continues to be alert and eager at the breast but unable to latch, it may be beneficial to try the shield again. Mom is encouraged to attempt for 10 minutes and then move on to supplementing and pumping. She has her own wearable breast pump. We reviewed the settings and sizing per the user manual. She pumped with her last baby. Patient is encouraged to continue practicing today with attention to encouraging baby to open her mouth very wide before latching. Patient is encouraged to call for any assistance needed. Primary RN updated.
--- NOTE | 2025-06-02 12:45 | PC.NURSE ---
Patient requested feeding assistance. She was not able to get baby to latch and she has a dirty diaper now. After changing the diaper, she was placed skin to skin with mom in cross cradle hold and turned tummy to tummy. Mom is mostly independent and just needs encouragement to hold baby a little closer to the breast. Baby still tends to be shallow and off/on the breast frequently. Colostrum noted when baby releases nipple. More consistent suckles and longer sustained latch was seen at this feeding compared with the previous feed. Mom is encouraged to continue working with baby to practice latching and to proceed with the plan to pump and supplement after each . RN updated.
--- NOTE | 2025-06-02 17:45 | PC.NURSE ---
Patient requested feeding assistance. Baby was in cross cradle on the right breast. She was off and on the breast, with mom holding baby and her breast well. She needs to be a little quicker with bringing baby into the breast and keeping her there. Mom says that she had to wake her for this feeding and that she took 30ml at the last feeding. Mom gave her 1ml of expressed breast milk now. Mom would like to wait a little while until baby is more awake and then try again. We reviewed watching for feeding cues and letting baby guide the feedings (responsive feeding). Mom says that if baby fusses now she will offer formula but that she would like to see if baby will do better at breast if she isn't taking as much supplement. Advised mother this is a definitely a plan she can try. When baby's stomach is not so full of formula and she isn't working to digest the large volumes, she may be more willing to latch at the breast and stay awake. Mom has continued to pump throughout the day today. Mom is encouraged to keep going with her plan like she has been. Her will be here soon to assist with care. Primary RN updated.
[2025-06-02 20:00] VITALS: BP 114/78; PULSE 84; RESP 16; TEMP 36.8; O2SAT 98
[2025-06-03 07:45] VITALS: BP 113/66; PULSE 85; RESP 18; TEMP 36.9; O2SAT 97
--- NOTE | 2025-06-03 07:47 | P.PNOB_ITS ---
OB - PN: Subj Subjective Date/time seen: 06/03/25 07:47 Patient comments: no complaints and pain well controlled baby status: doing well OB - PN: Obj Data Labs 06/02/25 03:47 OB - PN A/P Plan day: 2 Plan: routine care, discharge home and follow up 6 weeks Time Spent With Patient Time: Total time spent is greater than 50% in coordination of care (as documented) at patient's floor/unit and/or counseling patient: Exam 2 : Bimanual exam- vagina & uterus: other (Uterus firm, nt @U)
[2025-06-03] MEDS: MULTIVIT/MIN/PREN/FOL AC/IRON TABLET 1 TAB PO (08:02)
--- NOTE | 2025-06-03 09:10 | PC.NURSE ---
Introductions were made, then consulted with patient to assess needs related to . Mother led the conversation with her?plans to feed?her infant and the?experience so far. Mother is currently putting baby to breast and pumping for feedings. Pump education has been provided by previous RN and mother denies any further education in regards to pumping. Mother has her personal breast pump at bedside that she would like assistance setting up after breakfast. Additionally, mother will call with next feeding to assist with obtaining a deeper latch and states that previous feedings have been painful and she feels like infant is only taking the nipple into her mouth.
--- NOTE | 2025-06-03 11:12 | PC.NURSE ---
Called to patient bedside to assist with latching . Upon entering room, was asleep being held by mother. Encouraged understanding of the benefits of skin to skin, stimulating with massage touch and to changing positions to encourage wakefulness. Once was awake I assisted mother with placing in football position. was unable to maintain latch, so a nipple shield was used to establish appropriate latch. was able to maintain latch with nipple shield in place on the right breast. This RN stayed at bedside observing latch for approx 20 minutes. Mother encouraged to call this RN for next feeding if assistance is needed.
--- NOTE | 2025-06-03 16:47 | PC.NURSE ---
Patient instructed on viewing the discharge video [facility], The First Two Weeks. Patient was given the opportunity and encouraged to ask questions. Patient verbalized understanding of information shared and has been given the mother/baby guide for home reference.
[2025-06-04 11:50] VITALS: BP 112/79; PULSE 88; RESP 20; TEMP 36.7; O2SAT 100
== END 2025-06-03 16:18 | disposition home or self-care (01) | DRG 560 ==
LOC: ANHLDR 06-01 01:53 → ANHOB2 06-01 04:50
PROVIDERS: Admitting Provider Obstetrics & Gynecology Gynecology; Visit Provider Obstetrics & Gynecology Gynecology
DX: O77.0 Labor and delivery complicated by meconium in amniotic fluid (principal); Z37.0 Single live birth; Z3A.38 38 weeks gestation of pregnancy; O70.0 First degree perineal laceration during delivery; O36.8330 Maternal care for abnormalities of the fetal heart rate or rhythm, third trimester, not applicable or unspecified
CPT/HCPCS: 36415; 85014; 85018; 85025; 86593; 86850; 86900; 86901; 88307; A9270; J2371; J2590; J2795; J7120

== ENCOUNTER 2025-11-19 14:46 | Emergency (ER) | payer OTHER, SELFPAY ==
[2025-11-19 14:55] VITALS: BP 116/76; PULSE 81; RESP 16; TEMP 36.9; O2SAT 100
--- NOTE | 2025-11-19 15:37 | ED_ITS ---
HPI - URI/Sore Throat General Chief Complaint: Upper Respiratory Infection Stated Complaint: UPPER RESP Time Seen by Provider: 11/19/25 15:20 Source: patient Mode of arrival: ambulatory Limitations: no limitations History of Present Illness HPI Narrative: This is a 30-year-old female with no significant past medical history who presents to the ED for flu-like symptoms. Patient states for the past couple days, she has had a sore throat and right ear pain as well as a nonproductive cough. Family children have visited and had similar symptoms this week. She has had subjective fevers at home. Related Data Home Medications ?Medication ?Instructions ?Recorded ?Confirmed ?Last Taken ?Type [id number] 1 mg tablet PO 05/09/25 0 05/30/25 12:00 History tablet Allergies Allergy/AdvReac Type Severity Reaction Status Date / Time No Known Allergies Allergy Verified 11/19/25 14:47 Review of Systems Review of Systems: All systems reviewed & are unremarkable except as noted in HPI and below PMFSH Past Medical History Medical History (normal spontaneous vaginal delivery) Family History Family History Other No pertinent family history Social History Social History Smoking status: Never smoker Second hand tobacco smoke exposure: No Substance use: never Lack of Transportation: No Lack of Food: Never True Current Housing: I Have Housing Concerned About Future Housing: No Difficulty Paying Gas/Electric Bills: No Difficulty Paying for Meds: No Currently Unemployed: No Education: High School Diploma/GED Difficulty w/ Childcare or Family Care: No Gender identity (if verbalized by the patient): Female Spiritual care concerns: No Exam Narrative: APPEARANCE: No acute distress, nontoxic, resting in bed EYES: EOMI HEENT: Normocephalic, atraumatic, OMM. Bilateral TMs clear, mild erythema to the left ear canal RESPIRATORY: No respiratory distress Clear to auscultation bilaterally with no rhonchi wheezing or rales. CARDIOVASCULAR: Regular rate and rhythm without murmurs rubs or gallops. ABDOMINAL: Soft, nontender, nondistended, no rebound or guarding MUSCULOSKELETAl: Moves all extremities. No clubbing, cyanosis or edema. NEURO: Awake and alert. Following commands, speech normal, no focal deficits SKIN:: Warm, dry. No rashes lesions or abrasions PSYCHIATRIC: Normal affect/mood, Course Vital Signs Vital signs: Vital Signs Temperature 98.5 F 11/19/25 14:55 Pulse Rate 81 11/19/25 14:55 Respiratory Rate 16 11/19/25 14:55 Blood Pressure 116/76 11/19/25 14:55 Pulse Oximetry 100 11/19/25 14:55 Oxygen Delivery Room Air 11/19/25 14:55 Temperature 97.8 F 11/19/25 17:50 Pulse Rate 81 11/19/25 14:55 Respiratory Rate 16 11/19/25 14:55 Blood Pressure 116/76 11/19/25 14:55 Pulse Oximetry 100 11/19/25 16:10 Oxygen Delivery Room Air 11/19/25 16:10 MDM MDM Narrative Medical decision making narrative: 30-year-old female Presenting for flu-like symptoms. On initial evaluation patient was in no acute distress afebrile, hemodynamic stable. 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 Notable lab findings: Positive for influenza Discussed risk and benefits of Tamiflu with the patient. She did elect to begin Tamiflu. She was advised follow-up with her PCP in the next week for re- evaluation. Patient was agreeable to this plan. Given strict return precautions. 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 Follow-up with your PCP in the next week for re- evaluation. Return to the ED for any new or worsening symptoms. For pain, discomfort or temperature greater than or equal to 100.8 ?F please alternate the following 2 medications as needed. First medication- acetaminophen/Tylenol- 1000mg every 6-8 hours as needed for above indications. Second medication- ibuprofen/Motrin-600mg every 6-8 hours as needed for above indication. Patient Language: [place] Prescriptions: New oseltamivir [Tamiflu] 75 mg capsule 75 mg PO Q12H 5 Days Qty: 10 0RF No Action [id number] 1 mg tablet PO Follow-up/Referrals: Delta Larsen MD [Physician, Family Practice] PHYSICIAN,[employer]ISHER [Primary Care Provider, Internal Medicine]
[2025-11-19 16:06] LABS: Strep Group A RT-PCR NOT DETECTED (Negative)
[2025-11-19 16:10] VITALS: O2SAT 100
[2025-11-19 16:18] LABS: Influenza A QL RT-PCR Positive (Negative); Influenza B QL RT-PCR Negative (Negative); RSV RNA, RT-PCR Negative (Negative); SARS-CoV-2 RNA PCR Negative (Negative)
[2025-11-19 17:50] VITALS: TEMP 36.6
== END 2025-11-19 18:27 | disposition home or self-care (01) ==
PROVIDERS: Emergency Provider Student in an Organized Health Care Education/Training Program
DX: J10.1 Influenza due to other identified influenza virus with other respiratory manifestations (principal)
CPT/HCPCS: 87637; 87651; 99283